=== PATIENT | female | born 1975 | race American Indian/Alaskan Native ===

== ENCOUNTER 2018-08-27 06:00 | Emergency (ER) | payer MEDICAID ==
[2018-08-27 06:39] VITALS: BP 120/65
--- NOTE | 2018-08-27 08:03 | Emergency Department Report ---
ED Lower Extremity HPI - General Chief Complaint: Back Pain/Injury Stated Complaint: LET LEG NUMBNESS/PAIN 6MTH PREG Source: patient Mode of arrival: Ambulatory Limitations: No Limitations - History of Present Illness Initial Comments: This is a 43-year-old -Citizen Of [place] female who presents with left lower extremity pain and intermittent swelling for 3 weeks. Past medical history of hypertension. Patient reports she is 6 months and concerned easily seen. Patient reports the field by my leg is going to give out but never does. She reports pain is radiating from left hip to left foot. There is some intermittent swelling that is improved upon waking. Reports pain is 9 out of 10 on pain scale and dull achy sensation. Patient reports numbness sensation that is worse with weightbearing. Patient denies back pain, pelvic pain, vaginal bleeding or discharge, frequency, urgency, dysuria, or recent injury. MD Complaint: leg injury (left lower extremity) Onset/Timin -: week(s) Injury: Leg: Left Type of Injury: unknown Place: home Severity: moderate Severity scale (0 -10): 7 Improves With: nothing Worsens With: movement Context: walking Associated Symptoms: swelling, numbness Treatments Prior to Arrival: cold therapy - Related Data Allergies Allergy/AdvReac Type Severity Reaction Status Date / Time No Known Allergies Allergy Unverified 08/27/18 06:39 ED Review of Systems ROS: Stated complaint: LET LEG NUMBNESS/PAIN 6MTH PREG Other details as noted in HPI Constitutional: denies: chills, fever Respiratory: denies: cough, shortness of breath, wheezing Cardiovascular: denies: chest pain, palpitations Gastrointestinal: denies: abdominal pain, nausea, diarrhea Musculoskeletal: arthralgia (left lower extremity pain). denies: back pain, joint swelling Skin: denies: rash, lesions Neurological: denies: headache, weakness, paresthesias Psychiatric: denies: anxiety, depression ED Past Medical Hx - Past Medical History Previous Medical History?: Yes Hx Hypertension: Yes - Surgical History Past Surgical History?: No - Social History Smoking Status: Never Smoker Substance Use Type: None ED Physical Exam - General Limitations: No Limitations General appearance: alert, in no apparent distress, obese - Respiratory Respiratory exam: Present: normal lung sounds bilaterally. Absent: respiratory distress - Cardiovascular Cardiovascular Exam: Present: regular rate, normal rhythm. Absent: systolic murmur, diastolic murmur, rubs, gallop - GI/Abdominal GI/Abdominal exam: Present: soft, normal bowel sounds - Expanded Lower Extremity Exam Left Hip exam: Present: normal inspection, full ROM Upper Leg exam: Present: normal inspection, full ROM Knee exam: Present: normal inspection, full ROM Lower Leg exam: Present: full ROM, tenderness. Absent: swelling, abrasion, laceration, ecchymosis, deformity, crepidus, dislocation, erythema, palpable cord Ankle exam: Present: normal inspection, full ROM Foot/Toe exam: Present: normal inspection, full ROM Neuro vascular tendon exam: Present: no vascular compromise - Neurological Exam Neurological exam: Present: alert, oriented X3 - Psychiatric Psychiatric exam: Present: normal affect, normal mood - Skin Skin exam: Present: warm, dry, intact, normal color. Absent: rash ED Course Vital Signs 08/27/18 06:36 Temperature 98.0 F Pulse Rate 56 L Respiratory 17 Rate Blood Pressure 120/65 O2 Sat by Pulse 99 Oximetry ED Lower Extremity MDM - Radiology Data Radiology results: report reviewed LLE VENOUS DUPLEX COMPLETED. VAS LAB PRELIMINARY REPORT; NO EVIDENCE OF DVT/SVT NOTED IN VESSELS/SEGMENTS EXAMINED. PHYSICIANS REPORT TO FOLLOW...(RSK) - Medical Decision Making Patient was examined by me. Vitals are normal and patient is in no acute distress. Given Tylenol 650 mg by mouth once, in the ER. Obtained a venous Doppler of left lower extremity. LLE VENOUS DUPLEX COMPLETED. VAS LAB PRELIMINARY REPORT; NO EVIDENCE OF DVT/SVT NOTED IN VESSELS/SEGMENTS EXAMINED. PHYSICIANS REPORT TO FOLLOW...(RSK) Patient informed of results. Physical finances susceptible sciatica to the left lower extremity without back pain. Start Tylenol for pain. Plan discussed with patient to discharge home and treat outpatient. Patient discharged home in stable condition. Follow up with PCP or [facility] for continued care. I Critical care attestation.: If time is entered above; I have spent that time in minutes in the direct care of this critically ill patient, excluding procedure time. ED Disposition Clinical Impression: Pain in left leg, Sciatica of left side without back pain Disposition: TO HOME OR SELFCARE Is pt being admited?: No Does the pt Need Aspirin: No Condition: Stable Instructions: Sciatica (ED) Additional Instructions: Rest Use ice or heat on affected area for 20 minutes and off for 2 hours. Take pain medication every 6 hours as needed for pain. Follow up with Primary Care Provider or [facility] in 2-3 days. Referrals: [facility] [Outside] - 3-5 Days [facility] [Provider Group] - 3-5 Days CHIDI TRAN MD [Staff Physician] - 3-5 Days Forms: Work/School Release Form(ED) Time of Disposition: 09:08 Print Language: ROMANSH
[2018-08-27] MEDS ORDERED: TYLENOL PO ONE (09:04)
== END 2018-08-27 09:34 | disposition home or self-care (01) ==
LOC: ED 06:00
DX: M79.605 Pain in left leg (principal); M54.32 Sciatica, left side; I10 Essential (primary) hypertension
CPT/HCPCS: 99283